=== PATIENT | female | born 1960 | race African-American/Black ===

== ENCOUNTER 2018-08-19 23:29 | Emergency (ER) | payer OTHER ==
[~2018-08-19] VITALS: Ht 165.1 cm; Wt 114.0 kg
[2018-08-20] MEDS ORDERED: KETOROLAC 30MG/ML VIAL IV STA (00:49)
[2018-08-20] MEDS ORDERED: ONDANSETRON HCL 4MG/2ML INJ IV STA (00:49)
[2018-08-20] MEDS ORDERED: MORPHINE SULFATE 4 MG/ML CPJ (NOT FOR IM USE) IV STA (00:49)
[2018-08-20 01:05] LABS: EOSINOPHILS % 3.4 % (0.0-5.0); HEMATOCRIT. 45.2 % (36.0-48.0); HEMOGLOBIN. 15.5 g/dL (12.0-16.0); LYMPHOCYTES % 18.8 % (20.0-50.0); MEAN CORPUSCULAR VOLUME 90.2 fL (81.0-99.0); MEAN PLATELET VOLUME 8.4 fl (7.4-10.4); MONOCYTES % 5.9 % (2.0-8.0); NEUTROPHILS % 70.9 % (40.0-76.0); PLATELET 254 x1000/uL (130-400); RED BLOOD CELL COUNT 5.01 mill/uL (4.2-5.4); RED CELL DISTRIBUTION WIDTH 13.9 % (11.6-14.6)
[2018-08-20 01:12] LABS: CHLORIDE 105 mEq/L (98-107)
[2018-08-20 01:16] LABS: D-DIMER < 0.19 mg/L FEU (<0.50); PARTIAL THROMBOPLASTIN TIME 28.2 sec (23.4-31.0)
[2018-08-20] MEDS ORDERED: CLONIDINE 0.2MG TABLET PO ONE (02:45)
[2018-08-20 03:21] VITALS: BP 158/96
== END 2018-08-20 03:35 | disposition home or self-care (01) ==
LOC: ER 23:29
DX: M54.9 Dorsalgia, unspecified (principal); M62.838 Other muscle spasm; I10 Essential (primary) hypertension; F17.200 Nicotine dependence, unspecified, uncomplicated; Z88.5 Allergy status to narcotic agent
CPT/HCPCS: 36415; 71045; 71250; 80053; 83880; 84484; 85025; 85379; 85610; 85730; 93005; 96374; 96375; 99284; J1885; J2270; J2405